=== PATIENT | male | born 1955 | race Caucasian/White ===

== ENCOUNTER 2016-11-22 11:40 | Inpatient (IN) | payer OTHER ==
--- NOTE | 2016-11-22 12:57 | Emergency Department Report ---
ED Syncope HPI - General Chief Complaint: Syncope Stated Complaint: PASSED OUT X 2 Time Seen by Provider: 11/22/16 11:50 - History of Present Illness Initial Comments: Patient states that he was at his home today when he suffered a syncopal episode. Apparently the first event occurred while he was standing in the bathroom. He did fall and hit his head. He does not complain of headache although he does have some bruising of the left forehead area. He states he was not straining in the bathroom. He states he's never had a syncopal episode like this before although once he had an allergic reaction and he thinks he might have passed out. In any case he had a second episode when he was in a seated position. He was at home and I believe his was there. She stated that the episodes were of brief duration. He arrives in the emergency department via EMS. Denies any sort of chest pain pressure or tightness. He denies any respiratory symptoms. He did state he had some dizziness to the nurse. Twelve-lead EKG was obtained prehospital. He did have some diffusely elevated J-point. Repeat 12-lead EKG was obtained which shows elevated J-point but no evidence of STEMI. Timing/Prior Episodes: no prior history, multiple episodes today Precipitating Factors: Positive: none Context: sitting, standing Loss of Consciousness: brief (seconds) Current Symptoms: back to normal - Related Data Allergies/Adverse Reactions: Allergies No Known Allergies Allergy (Unverified 11/22/16 11:45) ED Review of Systems ROS: Stated complaint: PASSED OUT X 2 Other details as noted in HPI Constitutional: denies: chills, fever Eyes: denies: eye pain, eye discharge, vision change ENT: denies: ear pain, throat pain Respiratory: denies: cough, shortness of breath, wheezing Cardiovascular: syncope. denies: chest pain, palpitations Endocrine: no symptoms reported Gastrointestinal: denies: abdominal pain, nausea, diarrhea Genitourinary: denies: urgency, dysuria Musculoskeletal: denies: back pain, joint swelling, arthralgia Skin: denies: rash, lesions Neurological: denies: headache, weakness, paresthesias Psychiatric: denies: anxiety, depression Hematological/Lymphatic: denies: easy bleeding, easy bruising ED Past Medical Hx - Past Medical History Hx Hypertension: Yes (x 5 years) - Surgical History Past Surgical History?: No - Social History Smoking Status: Never Smoker Substance Use Type: None ED Physical Exam - General Limitations: No Limitations General appearance: alert, in no apparent distress - Head Head exam: Present: normocephalic, other - Eye Eye exam: Present: normal appearance, PERRL, EOMI. Absent: scleral icterus ( erythema left forehead no significant soft tissue swelling no hematoma) - ENT ENT exam: Present: normal exam, mucous membranes moist - Neck Neck exam: Present: normal inspection. Absent: tenderness, meningismus - Respiratory Respiratory exam: Present: normal lung sounds bilaterally. Absent: respiratory distress - Cardiovascular Cardiovascular Exam: Present: regular rate, normal rhythm. Absent: systolic murmur, diastolic murmur, rubs, gallop - GI/Abdominal GI/Abdominal exam: Present: soft, normal bowel sounds. Absent: distended, tenderness, guarding, rebound, rigid - Rectal Rectal exam: Present: deferred - Extremities Exam Extremities exam: Present: normal inspection - Back Exam Back exam: Present: normal inspection. Absent: CVA tenderness (R), CVA tenderness (L) - Neurological Exam Neurological exam: Present: alert, oriented X3, CN II-XII intact. Absent: motor sensory deficit - Psychiatric Psychiatric exam: Present: normal affect, normal mood - Skin Skin exam: Present: warm, dry, intact, normal color. Absent: rash ED Course Vital Signs 11/22/16 11/22/16 11:45 11:56 Temperature 97.3 F L Pulse Rate 92 H Respiratory 16 Rate Blood Pressure 126/91 Blood Pressure 126/91 [Right] O2 Sat by Pulse 99 98 Oximetry - Reevaluation(s) Reevaluation #1: Patient remained hemodynamically stable. He is admitted to the hospital service for further care and evaluation. 11/22/16 15:34 Reevaluation #2: I discussed with Dr. Mcdaniels. The patient does have a hilar mass. We will order a CT pulmonary angiogram at this point 11/22/16 15:38 ED Medical Decision Making - Lab Data Result diagrams: 11/22/16 13:43 11/22/16 13:43 - EKG Data -: EKG Interpreted by Me EKG shows normal: sinus rhythm (first-degree AV block) Rate: normal - EKG Data Interpretation: no acute changes - Radiology Data interpreted by me: Chest x-ray shows a left hilar mass. CT of the head shows no acute process. Pansinusitis is present. Critical care attestation.: If time is entered above; I have spent that time in minutes in the direct care of this critically ill patient, excluding procedure time. ED Disposition Clinical Impression: Hilar mass Syncope Qualifiers: Syncope type: unspecified Qualified Code(s): R55 - Syncope and collapse Pansinusitis Qualifiers: Chronicity: chronic Qualified Code(s): J32.4 - Chronic pansinusitis Disposition: DC-09 OP ADMIT IP TO THIS HOSP Is pt being admited?: Yes Does the pt Need Aspirin: Yes Condition: Stable Instructions: Syncope (ED) Time of Disposition: 15:38
--- NOTE | 2016-11-22 13:01 | Cat Scan Report ---
CT HEAD WITHOUT CONTRAST: 11/22/16 11:40:00 CLINICAL: Headache. TECHNIQUE: 2.5-mm noncontrast scans. COMPARISON:None FINDINGS: The ventricles and sulci are normal for age. No abnormal density. No mass or mass effect. No hemorrhage, edema or extra-axial collection. Complete opacification of the right maxillary sinus and an air-fluid level in the left maxillary sinus. Near complete opacification of right ethmoid sinuses and opacification of right frontal sinuses. The sphenoid sinuses are clear. Normal orbits and soft tissues. The calvarium and skull base are intact. IMPRESSION: Pansinusitis. The study is otherwise normal.
--- NOTE | 2016-11-22 13:03 | XRay Report ---
AP CHEST : 11/22/16 11:40:00 CLINICAL: Chest pain. COMPARISON:None FINDINGS: Normal heart and pulmonary vessels.There is an abnormal convex opacity just distal to the aortic arch to the left of midline. The lungs are normally expanded and clear. The bones and soft tissues are unremarkable. IMPRESSION: Abnormal opacity in the left medial chest. Recommend CT Chest with contrast to exclude mass or aneurysm.
[2016-11-22 14:22] LABS: Basophils % (Auto) 0.3 % (0.0-1.8); Eosinophils % (Auto) 0.7 % (0.0-4.3); Hematocrit 37.5 % (35.5-45.6); Hemoglobin 12.1 gm/dl (11.8-15.2); Mean Corpuscular HGB Conc 32 % (32-34); Mean Corpuscular Volume 80 fl (84-94); Platelet Count 250 K/mm3 (140-440); Red Blood Count 4.67 M/mm3 (3.65-5.03); Red Cell Distribution Width 13.9 % (13.2-15.2); White Blood Count 12.2 K/mm3 (4.5-11.0)
[2016-11-22 14:24] LABS: Mean Corpuscular Hemoglobin 26 pg (28-32)
[2016-11-22 14:24] LABS: Urine Drugs of Abuse Note Disclamer
[2016-11-22 14:33] LABS: INR 1.03 (0.87-1.13); Partial Thromboplastin Time 23.6 Sec. (24.2-36.6)
[2016-11-22 14:34] LABS: Bilirubin,Urine NEG (Negative); Blood,Urine NEG (Negative); Ketones,Urine NEG (Negative); Leukocyte Esterase,Urine NEG (Negative); Mucus,Urine FEW /HPF; Nitrite,Urine NEG (Negative); Protein,Urine <15 mg/dL mg/dL (Negative); Urobilinogen,Urine < 2.0 mg/dL (<2.0); WBC,Urine < 1.0 /HPF (0.0-6.0)
[2016-11-22 14:35] LABS: Creatine Kinase MB 2.2 ng/mL (0.0-4.0)
[2016-11-22 14:36] LABS: Alanine Aminotransferase 16 units/L (7-56); Albumin 3.8 g/dL (3.9-5); Albumin/Globulin Ratio 1.1 %; Alkaline Phosphatase 108 units/L (35-129); Anion Gap 17 mmol/L; BUN/Creatinine Ratio 15.55; Bilirubin,Direct < 0.2 mg/dL (0-0.2); Blood Urea Nitrogen 14 mg/dL (9-20); Calcium 9.2 mg/dL (8.4-10.2); Carbon Dioxide 25 mmol/L (22-30); Chloride 101.4 mmol/L (98-107); Creatine Kinase 193 units/L (55-170); Glucose 173 mg/dL (75-100); Sodium 139 mmol/L (137-145); Total Protein 7.4 g/dL (6.3-8.2)
--- NOTE | 2016-11-22 15:05 | History and Physical Report ---
History of Present Illness Chief complaint: I went down History of present illness: 61 YO Male with HTN presents to ED for evaluation. Pt states that he experienced two episodes of loss of consciousness. Pt states that he was at his home today when he suffered a syncopal episode while he was standing in his bathroom, and he subsequently did fall and hit his head. Pt wofe helped him up from the floor and walked him to his bed, and pt then experienced a second episode. Each episode lasted for 3-4 seconds as per patient . EMS notified. Pt transported to [facility] ED. Pt denies fever, chills, CP, Palpitations, NVD, Prolonged travel/immobility, trauma, cancer, individual/family history of DVT/PE , hemoptysis, difficulty breathing, leg swelling, calf pain, skin rash, previous syncopal episodes, ingestion of herbal medication, supplements, OTC drugs, or illicit drugs. Past History Past Medical History: hypertension Past Surgical History: No surgical history, Other (reviewed) Social history: , lives with family. denies: smoking, alcohol abuse, prescription drug abuse, IV drug use Family history: hypertension Medications and Allergies Allergies Allergy/AdvReac Type Severity Reaction Status Date / Time shrimp Allergy Unknown Verified 11/22/16 16:06 Home Medications Medication Instructions Recorded Confirmed Last Taken Type Atenolol/Chlorthalidone [Tenoretic 1 tab PO QDAY 11/22/16 11/22/16 1 Day Ago History 50-25] Review of Systems All systems: negative Constitutional: other (syncope) Exam - Constitutional Vitals: Temp Pulse Resp BP Pulse Ox 97.3 F L 92 H 16 126/91 98 11/22/16 11:45 11/22/16 11:45 11/22/16 11:45 11/22/16 11:45 11/22/16 11:56 General appearance: Present: mild distress - EENT Eyes: Present: PERRL ENT: hearing intact, clear oral mucosa - Neck Neck: Present: supple, normal ROM - Respiratory Respiratory effort: normal Respiratory: bilateral: CTA - Cardiovascular Heart Sounds: Present: S1 & S2. Absent: rub, click - Extremities Extremities: pulses symmetrical, No edema Peripheral Pulses: within normal limits - Abdominal General gastrointestinal: Present: soft, non-tender, non-distended, normal bowel sounds Male genitourinary: Present: normal - Integumentary Integumentary: Present: clear, warm, dry - Musculoskeletal Musculoskeletal: gait normal, strength equal bilaterally - Psychiatric Psychiatric: appropriate mood/affect, intact judgment & insight - Neurologic Neurologic: CNII-XII intact, moves all extremities Results - Labs CBC & Chem 7: 11/22/16 13:43 11/22/16 13:43 Labs: Abnormal lab results 11/22/16 11/22/16 11/22/16 Range/Units 13:43 13:43 13:43 WBC 12.2 H (4.5-11.0) K/mm3 MCV 80 L (84-94) fl MCH 26 L (28-32) pg Lymph % (Auto) 7.7 L (13.4-35.0) % Lymph # 0.9 L (1.2-5.4) K/mm3 Seg Neutrophils % 85.1 H (40.0-70.0) % Seg Neutrophils # 10.4 H (1.8-7.7) K/mm3 APTT 23.6 L (24.2-36.6) Sec. D-Dimer 274.85 H (0-234) ng/mlDDU Glucose 173 H (75-100) mg/dL Total Creatine Kinase 193 H (55-170) units/L Albumin 3.8 L (3.9-5) g/dL Assessment and Plan - Patient Problems (1) Unconscious state Current Visit: Yes Status: Acute Plan to address problem: CT Head, EEG in am, remote telemetry, supportive care, IVF replacement, D dimer (2) HTN (hypertension) Current Visit: Yes Status: Acute Qualifiers: Hypertension type: H Plan to address problem: monitor bp q shift, resume home medication (3) Hilar mass Current Visit: Yes Status: Acute (4) Pansinusitis Current Visit: Yes Status: Acute Qualifiers: Chronicity: chronic Recurrence: R Qualified Code(s): J32.4 - Chronic pansinusitis Plan to address problem: IV abx, supportive care, (5) DVT prophylaxis Current Visit: Yes Status: Acute
[2016-11-22] MEDS ORDERED: BABY ASPIRIN PO ONE (15:40)
[2016-11-22] MEDS ORDERED: MILK OF MAGNESIA PO PRN (17:27)
[2016-11-22] MEDS ORDERED: DULCOLAX PR PRN (17:27)
[2016-11-22] MEDS ORDERED: ZOFRAN IV PRN (17:27)
--- NOTE | 2016-11-22 17:38 | Admit Criteria Form ---
Admission Criteria Documentation: SYNCOPE Clinical Indications for Admission to Inpatient Care ( Place 'X' for any and all applicable criteria): Admission is indicated for syncope and ANY ONE of the following (1)(2)(3)(4)(5) (6)(7) : [X ]I. Inpatient admission required rather than observation care (Also use Syncope: Observation Care Criteria as appropriate) because of ANY ONE of the following: [ ]a) Hemodynamic instability that is severe or persistent [ ]b) Cardiac arrhythmias of immediate concern identified or strongly suspected (eg, needs electrophysiologic study) [ ]c) Acute coronary syndrome identified (Also use Myocardial Infarction or Angina Criteria form ) [ ]d) Structural cardiac disorder (eg, aortic stenosis) suspected as cause that requires immediate correction [ ]e) Respiratory symptoms (eg, dyspnea, tachypnea) that are severe or persistent [ ]f) Neurologic signs or symptoms that are severe or persistent ( eg, stroke, seizures, altered mental status) [ ]g) Severe electrolyte abnormalities requiring inpatient care [ ]h) Supplemental oxygen or respiratory treatment for over 24 hrs that are performable only in acute inpatient setting [ ]i) IV fluid to replace significant ongoing (eg, for over 24 hrs ) losses (>3 L/m2 per day) [ ]j) Continuous intravenous infusion of anticoagulation, platelet inhibitor, vasoactive, or antiarrhythmic medication(15)(16) [ ]k) Pulmonary artery catheter monitoring [ ]l) Temporary pacemaker placement(17) [ ]m) Emergent cardioversion(18) [X ]n) Other conditions, treatment or monitoring requiring inpatient admission [ ]II. Suspicion of imminently dangerous cause (eg, rare causes like pericardial tamponade, pulmonary embolism) [ ]III. Syncope causing severe injury requiring hospitalization Extended stay beyond goal length of stay may be needed for(28) [ ]a) Dangerous arrhythmia(15)(23)(27)(29) [ ]b) Myocardial ischemia [ ]c) Seizure disorder [ ]d) Syncope-related injuries The original [employer] content created by [employer] has been revised. The portions of the content which have been revised are identified through the use of italic text or in bold, and [employer] has neither reviewed nor approved the modified material. All other unmodified content is copyright [employer] of [employer]. Please see references footnoted in the original [facility] edition 2016 Admission Criteria Met: Yes
[2016-11-22] MEDS ORDERED: PROVENTIL IH PRN (17:40)
[2016-11-22] MEDS ORDERED: NACL 0.45% 1000 ML 1,000 ML IV SCH (18:00)
[2016-11-22] MEDS ORDERED: DUONEB 0.5 MG-3 MG/3 ML SOLN IH ONE ×2 (18:00→20:25)
[2016-11-22 18:51] LABS: Creatine Kinase 205 units/L (55-170)
[2016-11-22] MEDS ORDERED: TYLENOL ONE (18:55)
[2016-11-22] MEDS: ZITHROMAX 500 MG in NACL 0.9% 250ML 250 ML IV SCH (19:14)
[2016-11-22] MEDS: TYLENOL PO PRN (19:15)
[2016-11-23] MEDS: TYLENOL PO PRN (00:09)
[2016-11-23] MEDS ORDERED: NON-FORMULARY (Atenolol/Chlorthalidone [Tenoretic 50-25] 1 TAB) PO SCH (10:00)
[2016-11-23] MEDS: THALITONE PO SCH (10:11)
[2016-11-23] MEDS: TENORMIN PO SCH (10:12)
[2016-11-23] MEDS ORDERED: NACL ONE (11:00)
--- NOTE | 2016-11-23 11:06 | Progress Note ---
Assessment and Plan Assessment and plan: Syncope. Will obtain orthostatic vitals, Echocardiogram, carotid doppler. neurochecks 1q 6h Hypertension. BP normal. Full code status. History Interval history: patient presented with syncope Hospitalist Physical - Physical exam Narrative exam: Gen: appearance :Not in acute distress, HEENT: normocephalic atraumatic Neck :supple no JVD Lungs: Clear to auscultation bilaterally, no crackles, or wheezes Heart:S1 and S2 regular, no murmurs, no gallop, no rubs Abdomen soft, non-tender, non-distended, normal bowel sounds Extremities: no edema, no clubbing, or cyanosis Neuro : Awake alert oriented 3, no focal neurological signs Psych: calm - Constitutional Vitals: Temp Pulse Resp BP Pulse Ox 98.4 F 78 19 116/78 100 11/23/16 07:00 11/23/16 07:00 11/23/16 07:00 11/23/16 10:12 11/23/16 07:00 Results - Labs CBC & Chem 7: 11/22/16 13:43 11/22/16 13:43 Labs: Laboratory Last Values WBC 12.2 K/mm3 (4.5-11.0) H 11/22/16 13:43 RBC 4.67 M/mm3 (3.65-5.03) 11/22/16 13:43 Hgb 12.1 gm/dl (11.8-15.2) 11/22/16 13:43 Hct 37.5 % (35.5-45.6) 11/22/16 13:43 MCV 80 fl (84-94) L 11/22/16 13:43 MCH 26 pg (28-32) L 11/22/16 13:43 MCHC 32 % (32-34) 11/22/16 13:43 RDW 13.9 % (13.2-15.2) 11/22/16 13:43 Plt Count 250 K/mm3 (140-440) 11/22/16 13:43 Lymph % (Auto) 7.7 % (13.4-35.0) L 11/22/16 13:43 [place] % (Auto) 6.2 % (0.0-7.3) 11/22/16 13:43 Eos % (Auto) 0.7 % (0.0-4.3) 11/22/16 13:43 Baso % (Auto) 0.3 % (0.0-1.8) 11/22/16 13:43 Lymph # 0.9 K/mm3 (1.2-5.4) L 11/22/16 13:43 [place] # 0.8 K/mm3 (0.0-0.8) 11/22/16 13:43 Eos # 0.1 K/mm3 (0.0-0.4) 11/22/16 13:43 Baso # 0.0 K/mm3 (0.0-0.1) 11/22/16 13:43 Seg Neutrophils % 85.1 % (40.0-70.0) H 11/22/16 13:43 Seg Neutrophils # 10.4 K/mm3 (1.8-7.7) H 11/22/16 13:43 PT 13.4 Sec. (12.2-14.9) 11/22/16 13:43 INR 1.03 (0.87-1.13) 11/22/16 13:43 APTT 23.6 Sec. (24.2-36.6) L 11/22/16 13:43 D-Dimer 274.85 ng/mlDDU (0-234) H 11/22/16 13:43 Sodium 139 mmol/L (137-145) 11/22/16 13:43 Potassium 4.0 mmol/L (3.6-5.0) 11/22/16 13:43 Chloride 101.4 mmol/L (98-107) 11/22/16 13:43 Carbon Dioxide 25 mmol/L (22-30) 11/22/16 13:43 Anion Gap 17 mmol/L 11/22/16 13:43 BUN 14 mg/dL (9-20) 11/22/16 13:43 Creatinine 0.9 mg/dL (0.8-1.5) 11/22/16 13:43 Estimated GFR > 60 ml/min 11/22/16 13:43 BUN/Creatinine Ratio 15.55 % 11/22/16 13:43 Glucose 173 mg/dL (75-100) H 11/22/16 13:43 Calcium 9.2 mg/dL (8.4-10.2) 11/22/16 13:43 Total Bilirubin 0.20 mg/dL (0.1-1.2) 11/22/16 13:43 Direct Bilirubin < 0.2 mg/dL (0-0.2) 11/22/16 13:43 AST 15 units/L (5-40) 11/22/16 13:43 ALT 16 units/L (7-56) 11/22/16 13:43 Alkaline Phosphatase 108 units/L (35-129) 11/22/16 13:43 Total Creatine Kinase 205 units/L (55-170) H 11/22/16 17:49 CK-MB (CK-2) 2.0 ng/mL (0.0-4.0) 11/22/16 17:49 CK-MB (CK-2) Rel Index 0.9 (0-4) 11/22/16 17:49 Troponin T < 0.010 ng/mL (0.00-0.029) 11/22/16 17:49 Total Protein 7.4 g/dL (6.3-8.2) 11/22/16 13:43 Albumin 3.8 g/dL (3.9-5) L 11/22/16 13:43 Albumin/Globulin Ratio 1.1 % 11/22/16 13:43 Urine Color Yellow (Yellow) 11/22/16 14:22 Urine Turbidity Clear (Clear) 11/22/16 14:22 Urine pH 5.0 (5.0-7.0) 11/22/16 14:22 Ur Specific [place] 1.016 (1.003-1.030) 11/22/16 14:22 Urine Protein <15 mg/dl mg/dL (Negative) 11/22/16 14:22 Urine Glucose (UA) Neg mg/dL (Negative) 11/22/16 14:22 Urine Ketones Neg mg/dL (Negative) 11/22/16 14:22 Urine Blood Neg (Negative) 11/22/16 14:22 Urine Nitrite Neg (Negative) 11/22/16 14:22 Urine Bilirubin Neg (Negative) 11/22/16 14:22 Urine Urobilinogen < 2.0 mg/dL (<2.0) 11/22/16 14:22 Ur Leukocyte Esterase Neg (Negative) 11/22/16 14:22 Urine WBC (Auto) < 1.0 /HPF (0.0-6.0) 11/22/16 14:22 Urine RBC (Auto) 2.0 /HPF (0.0-6.0) 11/22/16 14:22 Hyaline Casts 1 /LPF 11/22/16 14:22 Urine Mucus Few /HPF 11/22/16 14:22 Urine Opiates Screen Presumptive negative 11/22/16 14:22 Urine Methadone Screen Presumptive negative 11/22/16 14:22 Ur Barbiturates Screen Presumptive negative 11/22/16 14:22 Ur Phencyclidine Scrn Presumptive negative 11/22/16 14:22 Ur Amphetamines Screen Presumptive negative 11/22/16 14:22 U Benzodiazepines Scrn Presumptive negative 11/22/16 14:22 Urine Cocaine Screen Presumptive negative 11/22/16 14:22 U Marijuana (THC) Screen Presumptive negative 11/22/16 14:22 Drugs of Abuse Note Disclamer 11/22/16 14:22 Blood Type A POSITIVE 11/22/16 13:42 Antibody Screen TNR 11/22/16 13:42 BERYL Antibody Screen Negative 11/22/16 13:42
--- NOTE | 2016-11-23 13:35 | Cat Scan Report ---
CTA CHEST: History: Syncope, chest pain Technique: Helical CT following IV contrast. Pulmonary embolus protocol. Sagittal and coronal reformatted images. Rotational MIP images. Findings: Contrast bolus is satisfactory. No pulmonary embolus is identified. The thyroid gland, tracheobronchial tree, esophagus, heart, pericardium, mediastinal vessels, lung osei and bony thorax are unremarkable. Linear atelectasis is noted in the lower lobes. 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 Impression: No evidence for pulmonary embolus. Unremarkable CT chest with contrast.
[2016-11-23] MEDS: ZITHROMAX 500 MG in NACL 0.9% 250ML 250 ML IV SCH (18:39)
[2016-11-24] MEDS: TYLENOL PO PRN (00:53)
[2016-11-24] MEDS: TENORMIN PO SCH (09:36)
--- NOTE | 2016-11-24 10:44 | Discharge Summary ---
Providers - Providers Date of Admission: 11/22/16 17:27 Date of discharge: 11/24/16 Attending physician: BRAYAN REILLY Primary care physician: PASQUALE TORRES MD Hospitalization Condition: Good Disposition: DC-01 TO HOME OR SELFCARE - Discharge Diagnoses (1) Vasovagal syncope Status: Acute Exam - Constitutional Vitals: Temp Pulse Resp BP Pulse Ox 98.5 F 67 18 113/75 99 11/24/16 07:27 11/24/16 07:27 11/24/16 07:27 11/24/16 07:27 11/24/16 10:00 Plan Activity: advance as tolerated Diet: low fat, low cholesterol, low salt Additional Instructions: 1.Follow up with PCP in 1 week Follow up with: PASQUALE TORRES MD [Primary Care Provider] - 3-5 Days
[2016-11-24] MEDS: THALITONE PO SCH (12:47)
[2016-11-24] MEDS ORDERED: ZITHROMAX PO SCH (14:00)
[2016-11-24 16:06] VITALS: BP 108/75
== END 2016-11-24 18:44 | disposition home or self-care (01) | DRG 312 ==
LOC: ED 11:40 → 3A 17:27
PROVIDERS: ADMIT Internal Medicine; ATTEND Internal Medicine
DX: R55 Syncope and collapse (principal); J32.4 Chronic pansinusitis; I10 Essential (primary) hypertension; W18.39XA Other fall on same level, initial encounter; R91.8 Other nonspecific abnormal finding of lung field; Y93.89 Activity, other specified; Y92.091 Bathroom in other non-institutional residence as the place of occurrence of the external cause; Y99.8 Other external cause status; Z91.018 Allergy to other foods; Z82.49 Family history of ischemic heart disease and other diseases of the circulatory system
CPT/HCPCS: 36415; 70450; 71010; 71275; 80048; 80074; 80307; 81001; 82550; 82553; 84484; 85025; 85379; 85610; 85730; 86850; 86900; 86901; 93005; 93010; 93306; 93880; 94760; J0456; J7050; Q9967